=== PATIENT | male | born 1995 | race African-American/Black ===

== ENCOUNTER → 2023-06-09 | Outpatient (CLI) | payer OTHER | LOC: M OUTALCOH 13:00 | PROVIDERS: ATTEND Psychiatry & Neurology Psychiatry | DX: F10.10 Alcohol abuse, uncomplicated (principal) ==

== ENCOUNTER 2023-07-08 16:03 | Outpatient (RCR) | payer OTHER | END 2023-07-22 | LOC: M OUTALCOH 16:03 | PROVIDERS: ATTEND Psychiatry & Neurology Psychiatry | DX: F10.10 Alcohol abuse, uncomplicated (principal) ==